=== PATIENT | female | born 1955 | race American Indian/Alaskan Native ===

== ENCOUNTER 2018-08-10 12:38 | Emergency (ER) | payer MEDICARE ==
[2018-08-10] MEDS ORDERED: KEPPRA 1,000 MG/NS 0.75% 100ML 1,000 MG/100 ML BAG IV ONE (13:20)
[2018-08-10 13:48] LABS: Basophils % (Auto) 0.4 % (0.0-1.8); Eosinophils % (Auto) 0.3 % (0.0-4.3); Hematocrit 46.5 % (30.3-42.9); Hemoglobin 15.6 gm/dl (10.1-14.3); Lymphocytes # (Auto) 1.2 K/mm3 (1.2-5.4); Lymphocytes % (Auto) 13.3 % (13.4-35.0); Mean Corpuscular HGB Conc 34 % (30-34); Mean Corpuscular Volume 97 fl (79-97); Monocytes # (Auto) 0.5 K/mm3 (0.0-0.8); Monocytes % (Auto) 5.9 % (0.0-7.3); Platelet Count 212 K/mm3 (140-440); Red Blood Count 4.78 M/mm3 (3.65-5.03); Red Cell Distribution Width 15.2 % (13.2-15.2)
[2018-08-10 14:21] LABS: BUN/Creatinine Ratio 32; Blood Urea Nitrogen 16 mg/dL (7-17); Calcium 8.7 mg/dL (8.4-10.2); Hemolysis Index 9
--- NOTE | 2018-08-10 15:09 | Cat Scan Report ---
CT HEAD WITHOUT CONTRAST: HISTORY: New onset seizure, lung cancer with brain. TECHNIQUE: Sequential 2.5mm CT images. COMPARISON: none. FINDINGS: Cerebral Parenchyma: There are rather large areas of vasogenic edema in the right frontal lobe, left frontal lobe and left temporal lobe suggesting underlying brain masses. Please note the masses are not clearly identified on CT without contrast. There is mild sulcal effacement in the left cerebral hemisphere secondary to the edema. The remaining brain parenchyma is within normal limits. Cerebellum: Within normal limits. Brainstem: Within normal limits. Ventricles: Normal. Sella: Normal. Extra-axial spaces: Normal. Basal Cisterns: Normal. Intracranial Hemorrhage: None. Midline Shift: None. Calvarium: Normal. Sinuses: Normal. Mastoid Air Cells: Normal. Visualized Orbits: Normal. IMPRESSION: Large areas of edema in the bilateral frontal lobes and left temporal lobes consistent with underlying metastatic lesions. No evidence for hemorrhage or midline shift. Consider further evaluation with MRI with contrast.
[2018-08-10] MEDS ORDERED: HumuLIN R IV ONE (15:12)
[2018-08-10] MEDS ORDERED: K-DUR PO ONE (15:16)
[2018-08-10] MEDS ORDERED: MAGNESIUM SULFATE 2GM/50ML 2 GM/50 ML BAG IV ONE (15:16)
--- NOTE | 2018-08-10 15:19 | Emergency Department Report ---
ED Seizure HPI - General Chief Complaint: Seizure Stated Complaint: SEIZURE Time Seen by Provider: 08/10/18 13:05 Source: patient, EMS Mode of arrival: Stretcher Limitations: No Limitations - History of Present Illness Initial Comments: 62-year-old female with a past medical history diabetes, hypertension, and lung cancer with metastases to the brain presents to the hospital complaints of seizure. Patient states that she felt abnormal and fell then woke up the floor of a store. She denies urinary incontinence or tongue laceration (The patient does not have any teeth). Patient is currently asymptomatic and denies any neurologic deficit or pain. She reports that she last received brain radiation for metastatic lesions 3-4 weeks ago and completed steroids a week ago. She did not get a chance to take any of her medications today including oral diabetes medication. All her doctors are [facility] affiliated. She denies receiving previous chemotherapy and is scheduled to follow up with her lung cancer specialist to initiate for the lung cancer treatment. She denies previous history of seizures. - Related Data Home Medications Medication Instructions Recorded Confirmed Last Taken Canagliflozin [Invokana] 300 mg PO QDAY 08/10/18 08/10/18 Unknown Duloxetine HCl [Cymbalta] 60 mg PO QDAY 08/10/18 08/10/18 Unknown Morphine Sulfate [Morphine Sulfate 30 mg PO Q12H 08/10/18 08/10/18 Unknown ER] NIFEdipine [Nifedipine ER] 60 mg PO QDAY 08/10/18 08/10/18 Unknown Sitagliptin Phosphate [Januvia] 100 mg PO QDAY 08/10/18 08/10/18 Unknown Previous Rx's Medication Instructions Recorded Last Taken Type dexAMETHasone [Decadron] 4 mg PO Q6H 14 Days tablet 08/10/18 Unknown Rx levETIRAcetam [Keppra TAB] 1,000 mg PO BID #60 tab 08/10/18 Unknown Rx Allergies Allergy/AdvReac Type Severity Reaction Status Date / Time No Known Allergies Allergy Unverified 08/10/18 12:57 ED Review of Systems ROS: Stated complaint: SEIZURE Other details as noted in HPI Comment: All other systems reviewed and negative ED Past Medical Hx - Past Medical History Hx Hypertension: Yes Hx Diabetes: Yes Hx of Cancer: Yes (lung cancer with brain metastases) - Social History Smoking Status: Never Smoker - Medications Home Medications: Home Medications Medication Instructions Recorded Confirmed Last Taken Type Canagliflozin [Invokana] 300 mg PO QDAY 08/10/18 08/10/18 Unknown History Duloxetine HCl [Cymbalta] 60 mg PO QDAY 08/10/18 08/10/18 Unknown History Morphine Sulfate [Morphine Sulfate 30 mg PO Q12H 08/10/18 08/10/18 Unknown History ER] NIFEdipine [Nifedipine ER] 60 mg PO QDAY 08/10/18 08/10/18 Unknown History Sitagliptin Phosphate [Januvia] 100 mg PO QDAY 08/10/18 08/10/18 Unknown History dexAMETHasone [Decadron] 4 mg PO Q6H 14 Days tablet 08/10/18 Unknown Rx levETIRAcetam [Keppra TAB] 1,000 mg PO BID #60 tab 08/10/18 Unknown Rx ED Physical Exam - General Limitations: No Limitations - Other Other exam information: General: No limitations, patient is alert in no acute distress Head exam: Atraumatic, normocephalic Eyes exam: Normal appearance, pupils equal reactive to light, extraocular movements intact ENT: Moist mucous membrane, normal oropharynx Neck exam: Normal inspection, full range of motion, no meningismus nontender Respiratory exam: Clear to auscultation bilateral, no wheezes, rales, crackles Cardiovascular: Normal rate and rhythm, normal heart sounds Abdomen: Soft, nondistended, and nontender, with normal bowel sounds, no rebound, or guarding Extremity: Full range of motion normal inspection no deformity Back: Normal Inspection, full range of motion, no tenderness Neurologic: Alert, oriented x3, cranial nerves intact, no motor or sensory deficit Psychiatric: normal affect, normal mood Skin: Warm, dry, intact ED Course Vital Signs 08/10/18 12:57 Temperature 99 F Pulse Rate 82 Respiratory 18 Rate Blood Pressure 155/78 O2 Sat by Pulse 96 Oximetry - Consultations Consultation #1: 08/10/18 15:27 This is discussed with 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 She recommends Decadron 4 mg every 6 hours follow-up with her radiation oncologist determine if further pain radiation is necessary. I will prescribe a 2 week supply. Agrees with keppra and recommends 1000 mg twice a day. Patient may follow up since she does not have any residual neurologic deficits. ED Medical Decision Making - Lab Data Result diagrams: 08/10/18 13:29 08/10/18 13:29 Lab Results 08/10/18 08/10/18 08/10/18 Range/Units 13:10 13:29 13:29 WBC 9.0 (4.5-11.0) K/mm3 RBC 4.78 (3.65-5.03) M/mm3 Hgb 15.6 H (10.1-14.3) gm/dl Hct 46.5 H (30.3-42.9) % MCV 97 (79-97) fl MCH 33 H (28-32) pg MCHC 34 (30-34) % RDW 15.2 (13.2-15.2) % Plt Count 212 (140-440) K/mm3 Lymph % (Auto) 13.3 L (13.4-35.0) % [place] % (Auto) 5.9 (0.0-7.3) % Eos % (Auto) 0.3 (0.0-4.3) % Baso % (Auto) 0.4 (0.0-1.8) % Lymph # 1.2 (1.2-5.4) K/mm3 [place] # 0.5 (0.0-0.8) K/mm3 Eos # 0.0 (0.0-0.4) K/mm3 Baso # 0.0 (0.0-0.1) K/mm3 Seg Neutrophils % 80.1 H (40.0-70.0) % Seg Neutrophils # 7.2 (1.8-7.7) K/mm3 Sodium 138 (137-145) mmol/L Potassium 3.5 L (3.6-5.0) mmol/L Chloride 97.1 L (98-107) mmol/L Carbon Dioxide 29 (22-30) mmol/L Anion Gap 15 mmol/L BUN 16 (7-17) mg/dL Creatinine 0.5 L (0.7-1.2) mg/dL Estimated GFR > 60 ml/min BUN/Creatinine Ratio 32 % Glucose 423 H (65-100) mg/dL POC Glucose 372 H (70-105) Calcium 8.7 (8.4-10.2) mg/dL Magnesium 1.30 L (1.7-2.3) mg/dL 08/10/18 Range/Units 16:49 WBC (4.5-11.0) K/mm3 RBC (3.65-5.03) M/mm3 Hgb (10.1-14.3) gm/dl Hct (30.3-42.9) % MCV (79-97) fl MCH (28-32) pg MCHC (30-34) % RDW (13.2-15.2) % Plt Count (140-440) K/mm3 Lymph % (Auto) (13.4-35.0) % [place] % (Auto) (0.0-7.3) % Eos % (Auto) (0.0-4.3) % Baso % (Auto) (0.0-1.8) % Lymph # (1.2-5.4) K/mm3 [place] # (0.0-0.8) K/mm3 Eos # (0.0-0.4) K/mm3 Baso # (0.0-0.1) K/mm3 Seg Neutrophils % (40.0-70.0) % Seg Neutrophils # (1.8-7.7) K/mm3 Sodium (137-145) mmol/L Potassium (3.6-5.0) mmol/L Chloride (98-107) mmol/L Carbon Dioxide (22-30) mmol/L Anion Gap mmol/L BUN (7-17) mg/dL Creatinine (0.7-1.2) mg/dL Estimated GFR ml/min BUN/Creatinine Ratio % Glucose (65-100) mg/dL POC Glucose 289 H (70-105) Calcium (8.4-10.2) mg/dL Magnesium (1.7-2.3) mg/dL - Radiology Data Radiology results: report reviewed CT HEAD WITHOUT CONTRAST: HISTORY: New onset seizure, lung cancer with brain. TECHNIQUE: Sequential 2.5mm CT images. COMPARISON: none. FINDINGS: Cerebral Parenchyma: There are rather large areas of vasogenic edema in the right frontal lobe, left frontal lobe and left temporal lobe suggesting underlying brain masses. Please note the masses are not clearly identified on CT without contrast. There is mild sulcal effacement in the left cerebral hemisphere secondary to the edema. The remaining brain parenchyma is within normal limits. Cerebellum: Within normal limits. Brainstem: Within normal limits. Ventricles: Normal. Sella: Normal. Extra-axial spaces: Normal. Basal Cisterns: Normal. Intra cranial Hemorrhage: None. Midline Shift: None. Calvarium: Normal. Sinuses: Normal. Mastoid Air Cells: Normal. Visualized Orbits: Normal. IMPRESSION: Large areas of edema in the bilateral frontal lobes and left temporal lobes consistent with underlying metastatic lesions. No evidence for hemorrhage or midline shift. Consider further evaluation with MRI with contrast. - Medical Decision Making Patient received IV Keppra, IV magnesium, and by mouth potassium Patient asymptomatic in the ED Hyperglycemia without signs of DKA improved after insulin doses Case discussed with neurologist at [facility] and will be dispositioned as discussed - Differential Diagnosis brain cancer, cerebral edema, electrolytes abnormality, new onset seizure Critical Care Time: No Critical care attestation.: If time is entered above; I have spent that time in minutes in the direct care of this critically ill patient, excluding procedure time. ED Disposition Clinical Impression: New onset seizure, Lung cancer metastatic to brain, Hypokalemia, Hypomagnesemia Disposition: DC- TO HOME OR SELFCARE Is pt being admited?: No Does the pt Need Aspirin: No Condition: Stable Instructions: New-Onset Seizure in Adults (ED), Hypokalemia (ED), Hypomagnesemia (ED) Additional Instructions: Take the medication as prescribed. Follow-up with your "brain doctor" or radiation oncologist before you run out of the steroids to determine if continue steroid treatment is needed. Take the seizure medication as prescribed twice a day. It is very important to follow-up with your doctors at [facility] as soon as possible (and before your run out of the steroids). Return is symptoms worsen as indicated by good discharge instructions. The steroids will cause a temporary increase in your sugar levels. Continue to manage as discussed Prescriptions: dexAMETHasone [Decadron] 4 mg PO Q6H 14 Days tablet levETIRAcetam [Keppra TAB] 1,000 mg PO BID #60 tab Referrals: your, [facility] doctors [Other] - 3-5 Days Time of Disposition: 17:16
[2018-08-10] MEDS ORDERED: DECADRON IV ONE (15:25)
[2018-08-10] MEDS ORDERED: HumuLIN R SUB-Q ONE (16:52)
[2018-08-10 17:00] VITALS: BP 148/78
== END 2018-08-10 17:21 | disposition home or self-care (01) ==
LOC: ED 12:38
DX: R56.9 Unspecified convulsions (principal); C34.90 Malignant neoplasm of unspecified part of unspecified bronchus or lung; C79.31 Secondary malignant neoplasm of brain; E87.6 Hypokalemia; E83.42 Hypomagnesemia; I10 Essential (primary) hypertension; E11.9 Type 2 diabetes mellitus without complications; Z79.899 Other long term (current) drug therapy
CPT/HCPCS: 36415; 70450; 80048; 82962; 83735; 85025; 96365; 96372; 96375; 99284; J1100; J1953; J3475; J1815